=== PATIENT | female | born 1970 | race Caucasian/White ===

== ENCOUNTER → 2019-05-03 08:51 | Outpatient (CLI) | payer OTHER, SELFPAY ==
--- NOTE | 2019-05-03 | DI.US.S_ITS ---
PROCEDURE: US ABDOMEN COMPLETE INDICATIONS: ABDOMINAL PAIN TECHNIQUE: Real-time scanning was performed of the abdominal and retroperitoneal organs, with image documentation. COMPARISON: None. FINDINGS: Liver: Liver is normal in size and homogeneous in echotexture. Gallbladder: No gallstones. No gallbladder wall thickening or pericholecystic fluid. There is positive sonographic Cruz's sign. Biliary ducts: Intrahepatic bile ducts are non-dilated. Extrahepatic bile duct caliber measures 3.1 mm. Normal is 6-7 mm or less in diameter, or 10 mm or less post-cholecystectomy. Pancreas: Visualized portions of the pancreas are sonographically normal. Spleen: Spleen is normal in size and homogeneous in echotexture. Kidneys: Kidneys are normal in size and echotexture. Right kidney measures 11.0 cm long; left kidney measures 10.4 cm long. There is mild right hydronephrosis. No renal stones identified. No solid masses. Aorta: Visualized aorta is normal in caliber at less than 3 cm. Iliacs: Proximal common iliac arteries are normal in caliber at less than 2.5 cm. IVC: Intrahepatic inferior vena cava is patent. Miscellaneous: No free abdominal fluid. IMPRESSION: 1. Mild right hydronephrosis. No obstructing stones identified. CT KUB is suggested for followup. 2. Normal ultrasound appearance of gallbladder. No gallstones, gallbladder wall thickening, or pericholecystic fluid. There is, however, sonographic Cruz sign. Dictated by: Leela Burciaga M.D. on 05/03/2019 at 12:33 Approved by: Leela Burciaga M.D. on 05/03/2019 at 12:38
== END ==
PROVIDERS: Referring Provider Nurse Practitioner Family; Visit Provider Nurse Practitioner Family
DX: R10.9 Unspecified abdominal pain (principal); N13.30 Unspecified hydronephrosis
CPT/HCPCS: 76700

== ENCOUNTER → 2019-05-15 09:00 | Outpatient (CLI) | payer OTHER, SELFPAY ==
--- NOTE | 2019-05-15 09:05 | DI.CT.S_ITS ---
PROCEDURE: CT KIDNEY URETER BLADDER (KUB) INDICATIONS: Unspecified hydronephrosis TECHNIQUE: Noncontrast 5 mm thick sections acquired from the diaphragms to the symphysis. 5 mm thick coronal and sagittal reformats were then performed. For radiation dose reduction, the following was used: automated exposure control, adjustment of mA and/or kV according to patient size. COMPARISON: [facility], , US ABDOMEN COMPLETE, 05/03/2019, 9:13. FINDINGS: Image quality: Excellent. Lung bases: Lung bases are clear. Heart size is normal. Breast implants. Urinary system: Both kidneys are normal in size. No kidney stones. Bilateral renal pelvis is prominent. The right proximal ureter is mildly dilated, (2/37). Bladder is within normal limits; no calcified bladder stones. Other solid organs: Liver is normal in size. Gallbladder is decompressed. Pancreas is normal in contours. Spleen is normal in size. No adrenal nodules. Peritoneum and bowel: Unenhanced bowel loops demonstrate normal wall thickness and caliber. No free fluid or air. Nodes and vessels: No retroperitoneal or mesenteric adenopathy by size criteria. Aorta and inferior vena cava are normal in caliber. Abdominal wall: No ventral hernias. Pelvis: No free pelvic fluid. No inguinal hernias or adenopathy. Uterus is prominent size. Bones: No suspicious bony lesions. No vertebral body compression fractures. IMPRESSION: 1. The proximal right ureter is mildly dilated. No radiopaque kidney stone. CT IVP would be helpful for further evaluation of the upper urinary tracts. Especially, if hematuria is present. 2. Renal pelvis is prominent bilaterally. 3. No free fluid. Dictated by: Kojo Dougherty M.D. on 05/15/2019 at 12:28 Approved by: Kojo Dougherty M.D. on 05/15/2019 at 12:35
== END ==
PROVIDERS: PCP Nurse Practitioner Family; Referring Provider Nurse Practitioner Family; Visit Provider Nurse Practitioner Family
DX: N13.30 Unspecified hydronephrosis (principal)
CPT/HCPCS: 74176

== ENCOUNTER → 2021-05-11 15:41 | Outpatient (CLI) | payer OTHER, SELFPAY ==
--- NOTE | 2021-05-11 | DI.RAD.S_ITS ---
PROCEDURE: XR CERVICAL SPINE 2V OR 3V INDICATIONS: Cervicalgia TECHNIQUE: 4 view(s) of the cervical spine were acquired. COMPARISON: [facility], CERVICAL SPINE 2 OR 3 VIEWS, 06/06/2006, 14:34. FINDINGS: Bones: No fractures or dislocations to the T1 level. The lateral masses of C1 appear intact on the odontoid view. No suspicious bony lesions. Loss of lordosis which could be related to muscle spasm, rigidity or simply positional. Mild disc height loss with endplate sclerosis and spurring at the C5-C6 and C6-C7 levels. Soft tissues: No prevertebral soft tissue swelling. IMPRESSION: Loss of lordosis and mild disc degeneration at the C5-C6 and C6-C7 levels. Dictated by: Easton EMERSON Interpreted: Jose Lamb MD on 05/11/2021 at 16:48 Transcribed by: [email or web address] on 05/11/2021 at 16:50 Approved by: Jose Lamb M.D. on 05/11/2021 at 17:32
== END ==
PROVIDERS: PCP Nurse Practitioner Family; Referring Provider Chiropractor; Visit Provider Chiropractor
DX: M50.322 Other cervical disc degeneration at C5-C6 level (principal); M99.01 Segmental and somatic dysfunction of cervical region
CPT/HCPCS: 72040

== ENCOUNTER → 2021-05-22 08:31 | Outpatient (CLI) | payer OTHER, SELFPAY | PROVIDERS: PCP Nurse Practitioner Family; Referring Provider Chiropractor; Visit Provider Chiropractor | DX: M54.12 Radiculopathy, cervical region (principal); Z53.9 Procedure and treatment not carried out, unspecified reason | CPT/HCPCS: 72141 ==